=== PATIENT | female | born 1995 | race African-American/Black ===

== ENCOUNTER 2018-03-20 17:55 | Observation (INO) | payer OTHER ==
[~2018-03-20] VITALS: Ht 165.1 cm; Wt 93.4 kg
[~2018-03-20 17:55] MED LIST: CEFAZOLIN 2,000 MG in DEXT 5% WATER 100 ML IV NR
[2018-03-20] MEDS ORDERED: PREN1TAB87 PO (18:51)
[2018-03-20] MEDS ORDERED: LACTATED RINGERS 1,000 ML IV SCH (19:00)
[2018-03-20 19:46] LABS: CLARITY URINE CLEAR (CLEAR); COLOR URINE YELLOW (YELLOW); KETONES URINE 4+ (NEGATIVE); LEUKOCYTE ESTERASE URINE NEGATIVE (NEGATIVE); NITRITE URINE NEGATIVE (NEGATIVE); OCCULT BLOOD URINE NEGATIVE (NEGATIVE); PROTEIN URINE TRACE (NEGATIVE); SPECIFIC GRAVITY URINE 1.026 (1.005-1.030); UROBILINOGEN URINE 0.2 E.U./dL (0.2-1.0)
== END 2018-03-21 01:15 | disposition home or self-care (01) ==
LOC: L&D 17:55
PROVIDERS: ADMIT Obstetrics & Gynecology; ATTEND Obstetrics & Gynecology
DX: O26.893 Other specified pregnancy related conditions, third trimester (principal); R10.30 Lower abdominal pain, unspecified; O26.853 Spotting complicating pregnancy, third trimester; Z3A.34 34 weeks gestation of pregnancy
CPT/HCPCS: 81003; 82731; 96365; G0378; J0690; J7060